=== PATIENT | female | born 1975 | race Two or more races ===

== ENCOUNTER 2021-10-29 10:57 | Outpatient (CLI) | payer OTHER | END 2021-10-29 11:14 | disposition home or self-care (01) | LOC: MRI 10:57 | DX: G43.019 Migraine without aura, intractable, without status migrainosus (principal) | CPT/HCPCS: 70551 ==

== ENCOUNTER 2022-01-28 08:59 | Outpatient (CLI) | payer OTHER | END 2022-01-28 09:00 | disposition home or self-care (01) | LOC: LAB 08:59 | PROVIDERS: ATTEND Obstetrics & Gynecology Maternal & Fetal Medicine | DX: K92.1 Melena (principal); Z12.11 Encounter for screening for malignant neoplasm of colon; E03.8 Other specified hypothyroidism; D63.8 Anemia in other chronic diseases classified elsewhere; N39.9 Disorder of urinary system, unspecified; E78.00 Pure hypercholesterolemia, unspecified; R73.9 Hyperglycemia, unspecified; E55.9 Vitamin D deficiency, unspecified ==